=== PATIENT | female | born 1970 | race Asian ===

== ENCOUNTER 2016-04-10 07:59 | Outpatient (CLI) | payer OTHER | END 2016-04-10 19:45 | disposition home or self-care (01) | LOC: LABW 07:59 | PROVIDERS: Internal Medicine | DX: N18.3 Chronic kidney disease, stage 3 (moderate) (principal) | CPT/HCPCS: 36415; 80069 ==

== ENCOUNTER 2016-04-24 12:43 | Day surgery (SDC) | payer OTHER ==
[~2016-04-24] VITALS: Ht 30.5 cm; Wt 0.5 kg
== END 2016-04-24 16:00 | disposition home or self-care (01) ==
LOC: OR 12:43
PROC: 0JB60ZZ Excision of Chest Subcutaneous Tissue and Fascia, Open Approach (ICD-10-PCS; principal; 2016-04-24)
PROC: 0W380ZZ Control Bleeding in Chest Wall, Open Approach (ICD-10-PCS; 2016-04-24)
PROC: [UNRECOGNIZED PROCEDURE] (2016-04-24)
DX: L76.22 Postprocedural hemorrhage of skin and subcutaneous tissue following other procedure (principal); Y83.8 Other surgical procedures as the cause of abnormal reaction of the patient, or of later complication, without mention of misadventure at the time of the procedure
CPT/HCPCS: J2001; J2250; J2704; J3010; J3490

== ENCOUNTER 2016-05-29 15:24 | Outpatient (CLI) | payer OTHER ==
[2016-05-29 17:01] LABS: PLATELET COUNT 283 K/uL (152-353)
== END 2016-05-29 23:49 | disposition home or self-care (01) ==
LOC: LABW 15:24
DX: R53.1 Weakness (principal); D64.89 Other specified anemias; R63.5 Abnormal weight gain
CPT/HCPCS: 36415; 84439; 84443; 85027

== ENCOUNTER 2016-07-20 07:28 | Outpatient (CLI) | payer OTHER ==
[2016-07-20 08:13] LABS: POTASSIUM 3.4 mmol/L (3.6-5.2)
== END 2016-07-20 20:24 | disposition home or self-care (01) ==
LOC: LABW 07:28
DX: E11.9 Type 2 diabetes mellitus without complications (principal); E78.4 Other hyperlipidemia; Z79.899 Other long term (current) drug therapy; I10 Essential (primary) hypertension; Z51.81 Encounter for therapeutic drug level monitoring
CPT/HCPCS: 36415; 80048; 80061; 83036; 84460

== ENCOUNTER 2016-08-01 07:54 | Outpatient (CLI) | payer OTHER ==
[2016-08-01 08:12] LABS: PLATELET COUNT 246 K/uL (152-353)
[2016-08-01 08:23] LABS: POTASSIUM 3.5 mmol/L (3.6-5.2)
== END 2016-08-01 19:03 | disposition home or self-care (01) ==
LOC: LABW 07:54
PROVIDERS: Internal Medicine
DX: N18.3 Chronic kidney disease, stage 3 (moderate) (principal)
CPT/HCPCS: 36415; 80053; 85027

== ENCOUNTER 2016-10-26 07:20 | Outpatient (CLI) | payer OTHER ==
[2016-10-26 08:33] LABS: POTASSIUM 3.7 mmol/L (3.6-5.2)
== END 2016-10-26 08:20 | disposition home or self-care (01) ==
LOC: LABW 07:20
DX: I10 Essential (primary) hypertension (principal); E11.9 Type 2 diabetes mellitus without complications
CPT/HCPCS: 36415; 80048; 82043; 82570; 83036

== ENCOUNTER 2017-01-14 12:14 | Outpatient (CLI) | payer OTHER ==
[2017-01-14 13:22] LABS: POTASSIUM 3.3 mmol/L (3.6-5.2)
== END 2017-01-14 18:59 | disposition home or self-care (01) ==
LOC: LABW 12:14
DX: R60.1 Generalized edema (principal); E11.9 Type 2 diabetes mellitus without complications; I10 Essential (primary) hypertension; M79.651 Pain in right thigh
CPT/HCPCS: 36415; 80048; 83036; 85379; 85651